=== PATIENT | male | born 1965 | race Caucasian/White ===

== ENCOUNTER 2022-01-11 09:30 | Emergency (ER) | payer OTHER, BC ==
[2022-01-11 09:46] VITALS: BP 164/102; PULSE 69
== END 2022-01-11 11:30 | disposition home or self-care (01) ==
LOC: LL.ED 09:30
DX: S82.301A Unspecified fracture of lower end of right tibia, initial encounter for closed fracture (principal); Z88.0 Allergy status to penicillin; Z91.048 Other nonmedicinal substance allergy status; W11.XXXA Fall on and from ladder, initial encounter
CPT/HCPCS: 29515; 73610-RT; 99283; 99283-25